=== PATIENT | male | born 1955 | race Caucasian/White ===

== ENCOUNTER 2022-04-04 17:47 | Observation (INO) | payer MEDICARE ==
[~2022-04-04] VITALS: Ht 177.8 cm; Wt 115.2 kg
[2022-04-04] MEDS: SODIUM CHLORIDE 0.9% 1000ML 1,000 ML IV SCH ×2 (01:02→20:42)
[2022-04-04] MEDS: DEXTROSE 5%/0.45% SOD CHL 1,000 ML IV SCH (02:34)
[2022-04-04 18:40] LABS: BASOPHILS % 0.3 % (0.0-1.0); EOSINOPHILS % 0.2 % (0.0-6.0); HEMATOCRIT 41.8 % (38.2-49.6); HEMOGLOBIN 14.2 g/dL (14.0-18.0); LYMPHOCYTES # (AUTO) 0.9 (1.0-3.2); LYMPHOCYTES % 9.3 % (18.0-39.1); MEAN CORPUSCULAR HEMOGLOBIN 32.1 pg (28-32); MEAN CORPUSCULAR VOLUME 94.6 fL (81-99); MONOCYTES # (AUTO) 0.7 (0.2-0.8); MONOCYTES % 7.4 % (4.4-11.3); NEUTROPHILS # (AUTO) 8.2 (2.1-6.9); NEUTROPHILS % 82.6 % (38.7-80.0); PLATELET COUNT 221 x10e3/uL (140-360); RED BLOOD COUNT 4.42 x10e6/uL (4.3-5.7); RED CELL DISTRIBUTION WIDTH 14.2 % (11.7-14.4)
[2022-04-04 18:51] LABS: CLARITY,URINE CLEAR (CLEAR); COLOR,URINE YELLOW (YELLOW); LEUKOCYTE ESTERASE ,URINE NEGATIVE (NEGATIVE); NITRITE,URINE NEGATIVE (NEGATIVE)
[2022-04-04 18:52] LABS: KETONES,URINE 2+ (NEGATIVE); PROTEIN,URINE DIPSTICK 1+ (NEGATIVE); URINE UROBILINOGEN 0.2 mg/dL (0.2 - 1)
[2022-04-04 18:58] LABS: ALBUMIN 4.1 g/dL (3.5-5.0); ALBUMIN/GLOBULIN RATIO 1.1 (0.8-2.0); ANION GAP 25.7 mmol/L (8-16); CALCIUM 8.9 mg/dL (8.4-10.2); CREATININE, SERUM 1.4 mg/dL (0.72-1.25); POTASSIUM 4.7 mmol/L (3.5-5.1)
[2022-04-04 19:00] LABS: BACTERIA,URINE RARE /HPF; EPITHELIAL CELLS,URINE RARE /LPF; WBC,URINE (MAN) 0-5 /HPF (0-5)
[2022-04-04] MEDS ORDERED: POTASSIUM CHLORIDE 20MEQ/100ML 200 ML IV PRN (19:30)
[2022-04-04] MEDS ORDERED: MAGNESIUM SULF 1GRAM/DEXTROSE 100 ML IV PRN (19:30)
[2022-04-04] MEDS: INSULIN REGULAR, HUMAN 3ML VL 100 UNIT in SODIUM CHLORIDE 0.9% 99 ML IV SCH ×2 (20:42)
[2022-04-05 01:16] LABS: ANION GAP 17.7 mmol/L (8-16); CALCIUM 8.5 mg/dL (8.4-10.2); CREATININE, SERUM 1.03 mg/dL (0.72-1.25); POTASSIUM 3.7 mmol/L (3.5-5.1)
[2022-04-05] MEDS: DEXTROSE 5%/0.45% SOD CHL 1,000 ML IV SCH ×2 (02:34→05:30)
[2022-04-05 05:02] LABS: ANION GAP 13.4 mmol/L (8-16); CALCIUM 8.5 mg/dL (8.4-10.2); CREATININE, SERUM 0.84 mg/dL (0.72-1.25); MAGNESIUM 1.9 MG/DL (1.3-2.1); POTASSIUM 3.4 mmol/L (3.5-5.1)
[2022-04-05] MEDS: INSULIN REGULAR, HUMAN 3ML VL 100 UNIT in SODIUM CHLORIDE 0.9% 99 ML IV SCH ×2 (05:30)
[2022-04-05] MEDS ORDERED: DEXTROSE 50% SYRINGE 50 ML IV PRN ×2 (06:15→13:30)
[2022-04-05] MEDS ORDERED: SODIUM CHLORIDE FLUSH 10 ML SYR INJ PRN (06:15)
[2022-04-05] MEDS ORDERED: ONDANSETRON HCL INJ 2MG/ML 2ML 2 MG/ML VIAL IV PRN ×2 (06:15→13:30)
[2022-04-05] MEDS: INSULIN REGULAR, HUMAN 100 UNIT/1 ML SQ SCH ×4 (08:00→22:10)
[2022-04-05 08:59] LABS: ANION GAP 16.8 mmol/L (8-16); CALCIUM 8.5 mg/dL (8.4-10.2); CREATININE, SERUM 0.81 mg/dL (0.72-1.25); POTASSIUM 3.8 mmol/L (3.5-5.1)
[2022-04-05 12:41] VITALS: BP 127/74
[2022-04-05 12:45] VITALS: BP 127/74
[2022-04-05] MEDS ORDERED: ACETAMINOPHEN 325 MG TAB PO PRN (13:30)
[2022-04-05] MEDS ORDERED: MOTRIN200 MG PO (14:14)
[2022-04-05] MEDS ORDERED: LOSARTAN POTAS100 MG PO (14:14)
[2022-04-05] MEDS ORDERED: FLOMAX0.4 MG PO (14:14)
[2022-04-05 16:18] VITALS: BP 109/70
[2022-04-05] MEDS ORDERED: INSULIN REGULAR, HUMAN 100 UNIT/1 ML ONE (16:36)
[2022-04-05 19:24] VITALS: BP 124/73
[2022-04-05 20:00] VITALS: BP 124/73
[2022-04-05] MEDS: METFORMIN HCL 500 MG TAB PO SCH (21:25)
[2022-04-06 00:30] VITALS: BP 132/78
[2022-04-06 04:00] VITALS: BP 114/70
[2022-04-06 05:13] LABS: BASOPHILS % 0.3 % (0.0-1.0); EOSINOPHILS # (AUTO) 0.1 (0.0-0.4); EOSINOPHILS % 1.9 % (0.0-6.0); HEMATOCRIT 40.1 % (38.2-49.6); HEMOGLOBIN 13.5 g/dL (14.0-18.0); LYMPHOCYTES # (AUTO) 0.8 (1.0-3.2); MEAN CORPUSCULAR HEMOGLOBIN 31.8 pg (28-32); MEAN CORPUSCULAR HGB CONC 33.7 g/dL (31-35); MEAN CORPUSCULAR VOLUME 94.4 fL (81-99); MONOCYTES # (AUTO) 0.6 (0.2-0.8); MONOCYTES % 10.5 % (4.4-11.3); NEUTROPHILS # (AUTO) 4.3 (2.1-6.9); PLATELET COUNT 162 x10e3/uL (140-360); RED BLOOD COUNT 4.25 x10e6/uL (4.3-5.7); RED CELL DISTRIBUTION WIDTH 14.4 % (11.7-14.4)
[2022-04-06 05:32] LABS: ANION GAP 16.9 mmol/L (8-16); CALCIUM 8.5 mg/dL (8.4-10.2); CREATININE, SERUM 0.82 mg/dL (0.72-1.25); POTASSIUM 3.9 mmol/L (3.5-5.1)
[2022-04-06] MEDS ORDERED: INSULIN LISPRO 100 UNIT/1 ML 3ML VIAL SQ ONE (05:45)
[2022-04-06] MEDS: INSULIN REGULAR, HUMAN 100 UNIT/1 ML SQ SCH ×2 (07:30→11:30)
[2022-04-06 08:00] VITALS: BP 112/84
[2022-04-06] MEDS: METFORMIN HCL 500 MG TAB PO SCH ×2 (08:42→12:06)
[2022-04-06] MEDS ORDERED: LOSARTAN POTASSIUM 25 MG TAB PO SCH (09:00)
[2022-04-06] MEDS ORDERED: METFORMIN HCL500 MG PO (10:26)
[2022-04-06] MEDS ORDERED: GLIPIZIDE5 MG PO (10:31)
[2022-04-06] MEDS ORDERED: ONDANSETRON HCL 4 MG ORAL DISINTEGRATING TAB PO PRN (12:15)
[2022-04-06 12:33] VITALS: BP 128/71
== END 2022-04-06 13:03 | disposition home or self-care (01) ==
LOC: ER 17:58 → INTOOBSV 04-05 06:07 → MED/SURG2 04-05 06:07 → ER 04-05 12:56
PROVIDERS: ADMIT Internal Medicine; ATTEND Internal Medicine
DX: E09.10 Drug or chemical induced diabetes mellitus with ketoacidosis without coma (principal); I10 Essential (primary) hypertension; C34.90 Malignant neoplasm of unspecified part of unspecified bronchus or lung; Z87.442 Personal history of urinary calculi; T38.0X5A Adverse effect of glucocorticoids and synthetic analogues, initial encounter; Z20.822 Contact with and (suspected) exposure to COVID-19
CPT/HCPCS: 36415 ×3; 71045; 80048 ×2; 80053; 81001; 82948 ×3; 83036; 83735; 85025 ×2; G0378 ×2; J1817 ×2; J7030 ×2; J7050 ×2; U0002

== ENCOUNTER 2022-04-07 21:54 | Inpatient (IN) | payer MEDICARE ==
[~2022-04-07] VITALS: Ht 177.8 cm; Wt 112.7 kg
[~2022-04-07 21:54] MED LIST: FLOMAX0.4 MG PO; GLIPIZIDE5 MG PO; LOSARTAN POTAS100 MG PO; METFORMIN HCL500 MG PO; MOTRIN200 MG PO
[2022-04-07] MEDS ORDERED: SODIUM CHLORIDE 0.9% 1000ML 1,000 ML IV ONE (22:15)
[2022-04-07 22:31] LABS: BASOPHILS % 0.2 % (0.0-1.0); EOSINOPHILS # (AUTO) 0.1 (0.0-0.4); EOSINOPHILS % 0.7 % (0.0-6.0); HEMATOCRIT 41.3 % (38.2-49.6); HEMOGLOBIN 13.7 g/dL (14.0-18.0); LYMPHOCYTES # (AUTO) 1.1 (1.0-3.2); LYMPHOCYTES % 10.7 % (18.0-39.1); MEAN CORPUSCULAR HEMOGLOBIN 31.6 pg (28-32); MEAN CORPUSCULAR HGB CONC 33.2 g/dL (31-35); MEAN CORPUSCULAR VOLUME 95.2 fL (81-99); MONOCYTES # (AUTO) 0.9 (0.2-0.8); MONOCYTES % 8.9 % (4.4-11.3); NEUTROPHILS # (AUTO) 7.9 (2.1-6.9); PLATELET COUNT 196 x10e3/uL (140-360); RED BLOOD COUNT 4.34 x10e6/uL (4.3-5.7); RED CELL DISTRIBUTION WIDTH 14.4 % (11.7-14.4)
[2022-04-07 22:44] LABS: ALBUMIN 3.9 g/dL (3.5-5.0); ANION GAP 24.2 mmol/L (8-16); CALCIUM 9.6 mg/dL (8.4-10.2); CREATININE, SERUM 1.1 mg/dL (0.72-1.25); POTASSIUM 4.2 mmol/L (3.5-5.1)
[2022-04-07 22:45] LABS: ALBUMIN/GLOBULIN RATIO 1.1 (0.8-2.0)
[2022-04-07] MEDS ORDERED: POTASSIUM CHLORIDE 20MEQ/100ML 200 ML IV PRN (23:00)
[2022-04-07] MEDS ORDERED: DEXTROSE 5%/0.45% SOD CHL 1,000 ML IV SCH (23:00)
[2022-04-07] MEDS ORDERED: MAGNESIUM SULF 1GRAM/DEXTROSE 100 ML IV PRN (23:00)
[2022-04-07] MEDS: SODIUM CHLORIDE 0.9% 1000ML 1,000 ML IV SCH ×2 (23:10→23:43)
[2022-04-07] MEDS: INSULIN REGULAR, HUMAN 3ML VL 100 UNIT in SODIUM CHLORIDE 0.9% 100 ML IV SCH ×2 (23:44)
[2022-04-07] MEDS ORDERED: SODIUM CHLORIDE FLUSH 10 ML SYR INJ PRN (23:45)
[2022-04-07] MEDS ORDERED: ONDANSETRON HCL INJ 2MG/ML 2ML 2 MG/ML VIAL IV PRN (23:45)
[2022-04-08] VITALS (25 sets, daily range): BP systolic 105–152; BP diastolic 53–89
[2022-04-08] MEDS: SODIUM CHLORIDE 0.9% 1000ML 1,000 ML IV SCH ×2 (03:00→22:39)
[2022-04-08 03:28] LABS: ANION GAP 14.4 mmol/L (8-16); CALCIUM 8.4 mg/dL (8.4-10.2); CREATININE, SERUM 0.83 mg/dL (0.72-1.25); MAGNESIUM 2.1 MG/DL (1.3-2.1); POTASSIUM 3.4 mmol/L (3.5-5.1)
[2022-04-08 07:17] LABS: ANION GAP 14.3 mmol/L (8-16); CREATININE, SERUM 0.71 mg/dL (0.72-1.25); POTASSIUM 3.3 mmol/L (3.5-5.1)
[2022-04-08] MEDS ORDERED: ONDANSETRON HCL INJ 2MG/ML 2ML 2 MG/ML VIAL IV PRN (07:45)
[2022-04-08] MEDS ORDERED: ZOLPIDEM TARTRATE 5 MG TAB PO PRN (07:45)
[2022-04-08] MEDS ORDERED: POTASSIUM CHLORIDE 20 MEQ TAB CR PO ONE (08:00)
[2022-04-08] MEDS: LOSARTAN POTASSIUM 100 MG TAB PO SCH (08:12)
[2022-04-08] MEDS: TAMSULOSIN HCL 0.4 MG CAP PO SCH (08:12)
[2022-04-08 12:35] LABS: ANION GAP 14.8 mmol/L (8-16); CALCIUM 8.2 mg/dL (8.4-10.2); CREATININE, SERUM 0.73 mg/dL (0.72-1.25); MAGNESIUM 1.6 MG/DL (1.3-2.1); POTASSIUM 3.8 mmol/L (3.5-5.1)
[2022-04-08] MEDS ORDERED: SODIUM CHLORIDE 0.9% 1000ML 1,000 ML IV SCH ×2 (13:45)
[2022-04-08] MEDS ORDERED: INSULIN REGULAR, HUMAN 100 UNIT/1 ML SQ PRN (13:45)
[2022-04-08] MEDS ORDERED: DEXTROSE 5%/0.45% SOD CHL 1,000 ML IV SCH (13:45)
[2022-04-08] MEDS ORDERED: MAGNESIUM SULF 1GRAM/DEXTROSE 100 ML IV PRN (13:45)
[2022-04-08 16:57] LABS: ANION GAP 13.7 mmol/L (8-16); CALCIUM 8.1 mg/dL (8.4-10.2); CREATININE, SERUM 0.78 mg/dL (0.72-1.25); MAGNESIUM 1.6 MG/DL (1.3-2.1); POTASSIUM 3.7 mmol/L (3.5-5.1)
[2022-04-08] MEDS: HEPARIN SOD (PORCINE) 5,000 UNIT/ML VIAL SC SCH (20:08)
[2022-04-08 20:51] LABS: ANION GAP 13.6 mmol/L (8-16); CALCIUM 8.5 mg/dL (8.4-10.2); CREATININE, SERUM 0.8 mg/dL (0.72-1.25); MAGNESIUM 1.9 MG/DL (1.3-2.1); POTASSIUM 3.6 mmol/L (3.5-5.1)
[2022-04-08] MEDS ORDERED: LOPERAMIDE HCL 2 MG CAP PO PRN (21:15)
[2022-04-08] MEDS ORDERED: CALCIUM CARBONATE 500 MG CHEWABLE TABS PO PRN (21:15)
[2022-04-09] VITALS (23 sets, daily range): BP systolic 103–149; BP diastolic 58–117
[2022-04-09 00:19] LABS: ANION GAP 12.7 mmol/L (8-16); CALCIUM 8.3 mg/dL (8.4-10.2); CREATININE, SERUM 0.77 mg/dL (0.72-1.25); MAGNESIUM 1.8 MG/DL (1.3-2.1); POTASSIUM 3.7 mmol/L (3.5-5.1)
[2022-04-09 04:32] LABS: ANION GAP 12.4 mmol/L (8-16); CALCIUM 7.9 mg/dL (8.4-10.2); CREATININE, SERUM 0.7 mg/dL (0.72-1.25); MAGNESIUM 1.8 MG/DL (1.3-2.1); POTASSIUM 3.4 mmol/L (3.5-5.1)
[2022-04-09] MEDS: SODIUM CHLORIDE 0.9% 1000ML 1,000 ML IV SCH ×3 (04:41→19:07)
[2022-04-09] MEDS: POTASSIUM CHLORIDE 20MEQ/100ML 100 ML IV PRN ×2 (04:42→22:11)
[2022-04-09] MEDS: LOSARTAN POTASSIUM 100 MG TAB PO SCH (08:36)
[2022-04-09] MEDS: TAMSULOSIN HCL 0.4 MG CAP PO SCH (08:37)
[2022-04-09] MEDS: HEPARIN SOD (PORCINE) 5,000 UNIT/ML VIAL SC SCH ×2 (08:37→20:24)
[2022-04-09 10:41] LABS: ANION GAP 13.5 mmol/L (8-16); CALCIUM 8.1 mg/dL (8.4-10.2); CREATININE, SERUM 0.67 mg/dL (0.72-1.25); MAGNESIUM 1.7 MG/DL (1.3-2.1); POTASSIUM 3.5 mmol/L (3.5-5.1)
[2022-04-09 14:07] LABS: ANION GAP 12.6 mmol/L (8-16); CALCIUM 7.9 mg/dL (8.4-10.2); CREATININE, SERUM 0.75 mg/dL (0.72-1.25); MAGNESIUM 1.7 MG/DL (1.3-2.1); POTASSIUM 3.6 mmol/L (3.5-5.1)
[2022-04-09 18:11] LABS: ANION GAP 14.6 mmol/L (8-16); CREATININE, SERUM 0.76 mg/dL (0.72-1.25); MAGNESIUM 1.7 MG/DL (1.3-2.1); POTASSIUM 3.6 mmol/L (3.5-5.1)
[2022-04-09 22:05] LABS: ANION GAP 13.3 mmol/L (8-16); CREATININE, SERUM 0.75 mg/dL (0.72-1.25); MAGNESIUM 1.6 MG/DL (1.3-2.1); POTASSIUM 3.3 mmol/L (3.5-5.1)
[2022-04-10] VITALS (16 sets, daily range): BP systolic 113–147; BP diastolic 71–102
[2022-04-10] MEDS: INSULIN REGULAR, HUMAN 3ML VL 100 UNIT in SODIUM CHLORIDE 0.9% 100 ML IV SCH ×2 (01:11)
[2022-04-10] MEDS: SODIUM CHLORIDE 0.9% 1000ML 1,000 ML IV SCH ×2 (01:12→08:38)
[2022-04-10 01:55] LABS: ANION GAP 12.3 mmol/L (8-16); CALCIUM 8.1 mg/dL (8.4-10.2); CREATININE, SERUM 0.74 mg/dL (0.72-1.25); POTASSIUM 3.3 mmol/L (3.5-5.1)
[2022-04-10] MEDS: POTASSIUM CHLORIDE 20MEQ/100ML 100 ML IV PRN (02:11)
[2022-04-10 06:07] LABS: ANION GAP 12.6 mmol/L (8-16); CALCIUM 7.9 mg/dL (8.4-10.2); CREATININE, SERUM 0.68 mg/dL (0.72-1.25); MAGNESIUM 1.8 MG/DL (1.3-2.1); POTASSIUM 3.6 mmol/L (3.5-5.1)
[2022-04-10] MEDS: LOSARTAN POTASSIUM 100 MG TAB PO SCH (08:37)
[2022-04-10] MEDS: HEPARIN SOD (PORCINE) 5,000 UNIT/ML VIAL SC SCH ×2 (08:40→21:10)
[2022-04-10] MEDS: TAMSULOSIN HCL 0.4 MG CAP PO SCH (08:43)
[2022-04-10] MEDS ORDERED: DEXTROSE 50% SYRINGE 50 ML IV PRN (09:15)
[2022-04-10] MEDS ORDERED: INSULIN GLARGINE 100 UNITS/ML VIAL SQ NR (09:30)
[2022-04-10] MEDS ORDERED: IBUPROFEN 400 MG TAB PO ONE (09:30)
[2022-04-10] MEDS ORDERED: POTASSIUM CHLORIDE 20 MEQ TAB CR PO NR (09:30)
[2022-04-10] MEDS: INSULIN REGULAR, HUMAN 100 UNIT/1 ML SQ SCH ×3 (11:15→21:10)
[2022-04-10] MEDS: GLIPIZIDE 5 MG TAB PO SCH (16:15)
[2022-04-10] MEDS ORDERED: INSULIN GLARGINE 100 UNITS/ML VIAL SQ SCH (21:30)
[2022-04-11 02:23] VITALS: BP 131/82
[2022-04-11 05:37] LABS: BASOPHILS % 0.3 % (0.0-1.0); EOSINOPHILS # (AUTO) 0.1 (0.0-0.4); EOSINOPHILS % 2.9 % (0.0-6.0); HEMATOCRIT 35.4 % (38.2-49.6); HEMOGLOBIN 12.1 g/dL (14.0-18.0); LYMPHOCYTES # (AUTO) 0.8 (1.0-3.2); LYMPHOCYTES % 22.6 % (18.0-39.1); MEAN CORPUSCULAR HEMOGLOBIN 32.4 pg (28-32); MEAN CORPUSCULAR HGB CONC 34.2 g/dL (31-35); MEAN CORPUSCULAR VOLUME 94.9 fL (81-99); MONOCYTES # (AUTO) 0.5 (0.2-0.8); MONOCYTES % 14.7 % (4.4-11.3); NEUTROPHILS % 58.9 % (38.7-80.0); PLATELET COUNT 160 x10e3/uL (140-360); RED BLOOD COUNT 3.73 x10e6/uL (4.3-5.7); RED CELL DISTRIBUTION WIDTH 13.8 % (11.7-14.4)
[2022-04-11 06:01] VITALS: BP 127/86
[2022-04-11 06:17] LABS: ANION GAP 12.6 mmol/L (8-16); CALCIUM 8.6 mg/dL (8.4-10.2); CREATININE, SERUM 0.71 mg/dL (0.72-1.25); POTASSIUM 3.6 mmol/L (3.5-5.1)
[2022-04-11 08:29] VITALS: BP 127/86
[2022-04-11 08:38] VITALS: BP 144/85
[2022-04-11] MEDS ORDERED: INSULIN GLARGINE 100 UNITS/ML VIAL SQ SCH (09:00)
[2022-04-11] MEDS: GLIPIZIDE 5 MG TAB PO SCH (09:04)
[2022-04-11] MEDS: TAMSULOSIN HCL 0.4 MG CAP PO SCH (09:04)
[2022-04-11] MEDS: LOSARTAN POTASSIUM 100 MG TAB PO SCH (09:05)
[2022-04-11] MEDS: INSULIN REGULAR, HUMAN 100 UNIT/1 ML SQ SCH ×2 (09:14→11:34)
[2022-04-11] MEDS: HEPARIN SOD (PORCINE) 5,000 UNIT/ML VIAL SC SCH (09:15)
[2022-04-11] MEDS ORDERED: Insulin Glargine SQ (10:46)
[2022-04-11 11:48] VITALS: BP 163/83
[2022-04-11] MEDS ORDERED: ONDANSETRON HCL 4 MG ORAL DISINTEGRATING TAB PO PRN (12:00)
[2022-04-12] MEDS ORDERED: PANTOPRAZOLE SOD 40 MG TABEC PO SCH (07:30)
== END 2022-04-11 12:05 | disposition home or self-care (01) | DRG 638 ==
LOC: ER 22:08 → ERHOLD 23:38 → ICU 23:59 → MED/SURG2 04-10 12:00
PROVIDERS: ADMIT Internal Medicine; ATTEND Internal Medicine
DX: E11.10 Type 2 diabetes mellitus with ketoacidosis without coma (principal); C34.90 Malignant neoplasm of unspecified part of unspecified bronchus or lung; N40.0 Benign prostatic hyperplasia without lower urinary tract symptoms; E87.6 Hypokalemia; Z20.822 Contact with and (suspected) exposure to COVID-19; Z79.4 Long term (current) use of insulin; I10 Essential (primary) hypertension
CPT/HCPCS: 0223U; 36415; 80048; 80053; 82948; 83735; 85025; 94799; 96361; 99284; J1644; J1815; J1817; J3475; J3480; J7030; J7050

== ENCOUNTER 2024-04-21 13:00 | Emergency (ER) | payer MEDICARE ==
[~2024-04-21] VITALS: Ht 177.8 cm; Wt 108.9 kg
[~2024-04-21 13:00] MED LIST changes: +ATORVASTATIN CA10 MG PO; +Insulin Glargine SQ; +METOPROLOL SUCC25 MG PO; +NOVOLOG100 UNIT/1 SC; +PLAVIX75 MG PO; +PREDNISONE5 MG PO
[2024-04-21 13:09] VITALS: PULSE 82; RESP 18; TEMP 98.3
[2024-04-21 14:04] LABS: INFLUENZAE A&B ANTIGEN (RAPID) NEGATIVE (NEGATIVE); RESPIRATORY SYNC. VIRUS NEGATIVE (NEGATIVE)
[2024-04-21 14:57] VITALS: BP 136/60; PULSE 73; RESP 16; O2SAT 98
== END 2024-04-21 14:58 | disposition home or self-care (01) ==
LOC: ER 13:06
DX: R42 Dizziness and giddiness (principal); R05.9 Cough, unspecified; I10 Essential (primary) hypertension; E11.9 Type 2 diabetes mellitus without complications; E78.5 Hyperlipidemia, unspecified; Z11.52 Encounter for screening for COVID-19; R94.31 Abnormal electrocardiogram [ECG] [EKG]; Z85.118 Personal history of other malignant neoplasm of bronchus and lung; Z87.442 Personal history of urinary calculi; F17.210 Nicotine dependence, cigarettes, uncomplicated
CPT/HCPCS: 71045; 87400; 87420; 93005; 99283; U0002